=== PATIENT | female | born 1965 | race American Indian/Alaskan Native ===

== ENCOUNTER 2019-03-21 13:56 | Emergency (ER) | payer SELFPAY ==
--- NOTE | 2019-03-21 14:23 | Cat Scan Report ---
CT HEAD WITHOUT CONTRAST INDICATION / CLINICAL INFORMATION: neuro deficits <6hrs or sx present upon awakening. Code stroke TECHNIQUE: Axial imaging performed from the skull apex through the skull base without the use of cont rast. Sagittal and coronal reformatted images. All CT scans at this location are performed using CT dose reduction for ALARA by means of automated exposure control. COMPARISON: None available. FINDINGS: CEREBRAL PARENCHYMA: No significant abnormality. No acute territorial infarct. HEMORRHAGE: None. EXTRA-AXIAL SPACES: Normal in size and morphology for the patient's age. VENTRICULAR SYSTEM: Normal in size and morphology for the patient's age. MIDLINE SHIFT OR HERNIATION: None. CEREBELLUM / BRAINSTEM: No significant abnormality. CALVARIUM: No significant abnormality. ORBITS: Normal as visualized. PARANASAL SINUSES / MASTOID AIR CELLS: Normal as visualized. SOFT TISSUES of HEAD: No significant abnormality. ADDITIONAL FINDINGS: None. IMPRESSION: No acute intracranial abnormality. These findings were discussed with Dr. Monge in the emergency department at 1418 hours Eastern standar d time. Signer Name: Oliverio Bender Jr, MD Signed: 03/21/2019 2:18 PM Workstation Name: [id number]
--- NOTE | 2019-03-21 14:31 | Emergency Department Report ---
ED Neuro Deficit HPI - General Chief Complaint: Neuro Symptoms/Deficit Stated Complaint: POSS STROKE/NUMB Time Seen by Provider: 03/21/19 14:18 Source: patient, family Mode of arrival: Ambulatory Limitations: No Limitations - History of Present Illness Initial Comments: [facility] TeleStroke Metrics: LKW: 2300 Door Time: 1356 [facility] Contacted: 1400 [facility] at Bedside: 1409 NIHSS: 1415 Decision on Alteplase: Not to give as her last known well time was last night. Interventional Candidate: Not a candidate as her symptoms are not consistent with a large vessel proximal occlusion. Chief Complaint: Headaches and facial weakness HPI: Asked to see this patient in telemedicine consultation. Consultation was performed with assistance of ancillary / medical staff at bedside. Verbal consent to perform the examination with telemedicine was obtained. Patient agreed to proceed with the consultation. 53-year-old right-handed -[place] female who was brought to the emergency by her daughter for headaches and right facial twisting. Patient does not take any aspirin or medications in general. She states she might have a history of hypertension but again does not take any medications. Patient went to bed at her baseline at around 11 PM. She then woke up this morning around 10:30 am with a bitemporal headache and an abnormal pulling sensation behind both sides of her neck. She also felt like the right side of her face was swollen and twisted. She has never had these symptoms before. She denied any involvement of her arms or legs. Upon my evaluation, the patient actually looks like she has a left Zhang's palsy. She has a decrease in left eye blinking and a left facial asymmetry. She is able to move the right side of her face. She had no focal motor weakness or numbness in her limbs. PMH: Possible hypertension SOC: Positive tobacco abuse. Negative x2. Patient lives with her daughter. FMH: Mother with a stroke before. ROS: 13 point review of systems were reviewed with the patient, and are all negative with the exception of the aforementioned in the history of present illness. VS: Nothing documented yet. Exam: Patient is in no apparent distress. Patient appears as stated age. No obvious acute respiratory or cardiac distress. Patient is well groomed and well-nourished. 1a- LOC: Keenly responsive - 0 1b- LOC questions: Answers both questions correctly - 0 1c- LOC commands- Performs both tasks correctly- 0 2- Gaze: Normal; no gaze paresis or gaze deviation - 0 3- Visual Young: normal, no Visual field deficit - 0 4- Facial movements: left facial palsy - 3 5- Upper limb motor - no drift - 0 6- Lower limb motor - no drift - 0 7- Limb Coordination: absent ataxia - 0 8- Sensory: no sensory loss - 0 9- Language - No aphasia - 0 10- Speech - No dysarthria -0 11- Neglect / Extinction - none found - 0 NIHSS score: 3 Diagnostic Data: Blood glucose 108 CT of the head showed no acute intracranial process Medical Data Reviewed: 1.Data?reviewed include clinical labs, radiology,?and medical tests; 2.Tests?results discussed w/performing or interpreting physician; 3.Obtaining/reviewing old medical records; 4.Obtaining?case history from another source; 5.Independent?review of image, tracing, or specimen. Medical Decision Making: - Extensive number of diagnosis or management options are considered below. - Extensive amount of complex data reviewed. - High risk of complication and/or morbidity or mortality are associated with differential diagnostic considerations below. - There may be?uncertain?outcome and increased probability of prolonged functional impairment or high probability of severe prolonged functional impairment associated with some of these differential diagnosis. Differential Diagnosis for Stroke: 1.?Cardioembolic?stroke 2. Small vessel disease/lacune 3. Thromboembolic, [id number] mechanism 4.?Hypercoagulable?state-related infarct 5. Transient ischemic attack 6. Thrombotic mechanism, large artery disease Assessment: 1. Acute left-sided Zhang's palsy. Peripheral versus central etiologies. 2. Possible hypertension 3. Tobacco abuse Recommendations: Patient can be admitted to the hospital for further work-up of her symptoms. Check MRI of the brain with and without contrast to rule out any brainstem lesions that could be causing her left-sided Zhang's palsy. Check MRA of the head and neck to evaluate her intracranial and extracranial blood vessels. Can start the patient on a baby aspirin for now to cover the possibility of a central cause of her Zhang's palsy. Can also start the patient on a 7-day course of prednisone and a 7-day course of acyclovir to cover the possibility of a peripheral Zhang's. Patient and daughter were counseled that a peripheral Zhang's palsy can actually get worse within the next 48 to 72 hours. It may take up to 4 to 6 weeks for her Zhang's palsy to recover. It is important that the patient protects her left eye from a corneal abrasion due to left eye closure weakness. She is to use natural tear eyedrops every hour while awake and can use Lacri-Lube to the left eye while asleep. She can also use left eye patching while sleeping at night to protect her left eye while asleep. Continue supportive care. Plan of care was discussed with the patient and her daughter. Thank you for allowing [facility] to participate in the care of your patient. Please call me, Dr. Escobar, with any questions at [phone]. Case discussed with the ER staff and Dr. Monge. Critical Care notation: I was called to see this critical patient emergently. I personally evaluated this critical patient for acute stroke evaluation, and determining their eligibility for IV Alteplase and interventional therapies. I have spent approximately 12 minutes with the patient, including time at bedside, time discussing the case with other physicians, reviewing plan of care, and time independently reviewing the records and scans. - Related Data Allergies/Adverse Reactions: Allergies Allergy/AdvReac Type Severity Reaction Status Date / Time No Known Allergies Allergy Verified 03/21/19 13:59 ED Review of Systems ROS: Stated complaint: POSS STROKE/NUMB Other details as noted in HPI ED Neuro Physical Exam - General Limitations: No Limitations Suspected Stroke: No - Lab Data Lab Results 03/21/19 Range/Units 14:07 POC Glucose 108 H (70-105) Critical care attestation.: If time is entered above; I have spent that time in minutes in the direct care of this critically ill patient, excluding procedure time. ED Disposition Clinical Impression: Facial paralysis/[place] palsy Disposition: OP ADMIT IP TO THIS HOSP Is pt being admited?: Yes Does the pt Need Aspirin: Yes Condition: Stable
--- NOTE | 2019-03-21 14:47 | Emergency Department Report ---
ED Neuro Deficit HPI - General Chief Complaint: Neuro Symptoms/Deficit Stated Complaint: POSS STROKE/NUMB Time Seen by Provider: 03/21/19 14:18 Source: patient, family Mode of arrival: Ambulatory Limitations: No Limitations - History of Present Illness Initial Comments: 53-year-old female presents to the ED as a stroke alert. Patient states she awoke this morning at around 9 AM with left facial droop. Patient states on yesterday she began noticing she was having trouble closing her left eye. Patient denies any extremity weakness or numbness, denies any slurred speech. -: days(s) (1) Location: left face Presenting Symptoms: Present: Weak/Paralyzed One Side History of same: No Place: home Severity: mild Quality: weak Improves With: none Worsens With: none On Anticoagulants: No Associated Symptoms: headaches. denies: confusion, chest pain, nausea/vomiting Treatments Prior to Arrival: none - Related Data Home Medications: Previous Rx's Medication Instructions Recorded Last Taken Type Acyclovir [Zovirax Cap] 400 mg PO TID #21 cap 03/21/19 Unknown Rx Aspirin 325 mg PO QDAY #30 tablet 03/21/19 Unknown Rx Prednisone [predniSONE 10 mg 10 mg PO .TAPER #1 tab.ds.pk 03/21/19 Unknown Rx (6-Day Pack, 21 Tabs)] Simvastatin 40 mg PO QHS #30 tablet 03/21/19 Unknown Rx amLODIPine [Norvasc] 10 mg PO DAILY #30 tab 03/21/19 Unknown Rx hydroCHLOROthiazide [HCTZ] 25 mg PO QDAY #30 tablet 03/21/19 Unknown Rx Allergies/Adverse Reactions: Allergies Allergy/AdvReac Type Severity Reaction Status Date / Time No Known Allergies Allergy Verified 03/21/19 13:59 ED Review of Systems ROS: Stated complaint: POSS STROKE/NUMB Other details as noted in HPI Comment: All other systems reviewed and negative Constitutional: denies: chills, fever Respiratory: denies: shortness of breath Cardiovascular: denies: chest pain Gastrointestinal: denies: nausea, vomiting Neurological: headache, other (reports left facial droop) ED Past Medical Hx - Medications Home Medications: Home Medications Medication Instructions Recorded Confirmed Last Taken Type Acyclovir [Zovirax Cap] 400 mg PO TID #21 cap 03/21/19 Unknown Rx Aspirin 325 mg PO QDAY #30 tablet 03/21/19 Unknown Rx Prednisone [predniSONE 10 mg 10 mg PO .TAPER #1 tab.ds.pk 03/21/19 Unknown Rx (6-Day Pack, 21 Tabs)] Simvastatin 40 mg PO QHS #30 tablet 03/21/19 Unknown Rx amLODIPine [Norvasc] 10 mg PO DAILY #30 tab 03/21/19 Unknown Rx hydroCHLOROthiazide [HCTZ] 25 mg PO QDAY #30 tablet 03/21/19 Unknown Rx ED Neuro Physical Exam - General Limitations: No Limitations General appearance: alert, in no apparent distress Suspected Stroke: No - Head Head exam: Present: atraumatic, normocephalic - Eye Eye exam: Present: normal appearance, PERRL, EOMI Pupils: Present: normal accommodation - ENT ENT exam: Present: mucous membranes moist - Neck Neck exam: Present: normal inspection - Respiratory Respiratory exam: Present: normal lung sounds bilaterally. Absent: respiratory distress - Cardiovascular Cardiovascular Exam: Present: regular rate, normal rhythm - GI/Abdominal GI/Abdominal exam: Present: soft. Absent: distended, tenderness - Extremities Exam Extremities exam: Present: normal inspection - Neurological Exam Neurological exam: Present: alert, oriented X3 - NIHSS Assessment Interval: Baseline 1a. Level of Consciousness: alert/keenly responsive 1b. LOC Questions: answers both correctly 1c. LOC Commands: performs tasks correctly 2. Best Gaze: normal 3. Visual: no visual loss 4. Facial Palsy: unilateral complete paralysis 5b. Motor Arm Right: no drift 5a. Motor Arm Left: no drift 6a. Motor Leg Left: no drift 6b. Motor Leg Right: no drift 7. Limb Ataxia: absent 8. Sensory: normal 9. Best Language: no aphasia 10. Dysarthria: normal 11. Extinction/Inattention: no abnormality Total Score: 3 Stroke Severity: Minor Stroke - Psychiatric Psychiatric exam: Present: normal affect, normal mood - Skin Skin exam: Present: warm, dry, intact, normal color ED Course Vital Signs 03/21/19 03/21/19 03/21/19 14:22 14:31 14:45 Temperature Pulse Rate 101 H 84 80 Respiratory 15 20 12 Rate Blood Pressure 212/138 Blood Pressure [Left] O2 Sat by Pulse 99 99 100 Oximetry 03/21/19 03/21/19 03/21/19 14:48 14:49 15:00 Temperature 98.5 F Pulse Rate 81 80 Respiratory 13 13 20 Rate Blood Pressure 199/131 Blood Pressure 229/129 [Left] O2 Sat by Pulse 100 100 99 Oximetry 03/21/19 03/21/19 03/21/19 15:15 15:30 15:33 Temperature Pulse Rate 79 80 80 Respiratory 10 L 17 Rate Blood Pressure 200/124 178/124 200/124 Blood Pressure [Left] O2 Sat by Pulse 99 100 Oximetry 03/21/19 03/21/19 03/21/19 15:45 16:00 16:15 Temperature Pulse Rate 76 76 75 Respiratory 14 15 16 Rate Blood Pressure 189/118 164/110 181/106 Blood Pressure [Left] O2 Sat by Pulse 98 98 99 Oximetry 03/21/19 03/21/19 03/21/19 16:30 16:45 17:00 Temperature Pulse Rate 74 76 76 Respiratory 12 13 15 Rate Blood Pressure 183/117 183/117 180/108 Blood Pressure [Left] O2 Sat by Pulse 99 100 99 Oximetry 03/21/19 03/21/19 03/21/19 17:15 17:30 18:03 Temperature Pulse Rate 74 74 82 Respiratory 13 16 15 Rate Blood Pressure 189/113 197/114 Blood Pressure 162/93 [Left] O2 Sat by Pulse 99 98 100 Oximetry 03/21/19 03/21/19 03/21/19 18:09 18:45 19:01 Temperature Pulse Rate 76 82 82 Respiratory 18 Rate Blood Pressure 164/110 190/98 Blood Pressure 155/93 [Left] O2 Sat by Pulse 100 Oximetry 03/21/19 19:06 Temperature Pulse Rate 85 Respiratory 18 Rate Blood Pressure Blood Pressure 153/92 [Left] O2 Sat by Pulse 100 Oximetry - Lab Data Result diagrams: 03/21/19 14:40 03/21/19 14:40 Lab Results 03/21/19 03/21/19 03/21/19 Range/Units 14:07 14:40 14:40 WBC 8.0 (4.5-11.0) K/mm3 RBC 4.93 (3.65-5.03) M/mm3 Hgb 15.3 H (10.1-14.3) gm/dl Hct 45.8 H (30.3-42.9) % MCV 93 (79-97) fl MCH 31 (28-32) pg MCHC 33 (30-34) % RDW 13.9 (13.2-15.2) % Plt Count 306 (140-440) K/mm3 Lymph % (Auto) 46.5 H (13.4-35.0) % [place] % (Auto) 5.9 (0.0-7.3) % Eos % (Auto) 1.6 (0.0-4.3) % Baso % (Auto) 1.5 (0.0-1.8) % Lymph # 3.7 (1.2-5.4) K/mm3 [place] # 0.5 (0.0-0.8) K/mm3 Eos # 0.1 (0.0-0.4) K/mm3 Baso # 0.1 (0.0-0.1) K/mm3 Seg Neutrophils % 44.5 (40.0-70.0) % Seg Neutrophils # 3.6 (1.8-7.7) K/mm3 PT 12.1 L (12.2-14.9) Sec. INR 0.92 (0.87-1.13) APTT 29.7 (24.2-36.6) Sec. Thrombin Time 18.3 (15.1-19.6) Sec. Sodium (137-145) mmol/L Potassium (3.6-5.0) mmol/L Chloride (98-107) mmol/L Carbon Dioxide (22-30) mmol/L Anion Gap mmol/L BUN (7-17) mg/dL Creatinine (0.7-1.2) mg/dL Estimated GFR ml/min BUN/Creatinine Ratio % Glucose (65-100) mg/dL POC Glucose 108 H (70-105) Calcium (8.4-10.2) mg/dL Troponin T (0.00-0.029) ng/mL 03/21/19 Range/Units 14:40 WBC (4.5-11.0) K/mm3 RBC (3.65-5.03) M/mm3 Hgb (10.1-14.3) gm/dl Hct (30.3-42.9) % MCV (79-97) fl MCH (28-32) pg MCHC (30-34) % RDW (13.2-15.2) % Plt Count (140-440) K/mm3 Lymph % (Auto) (13.4-35.0) % [place] % (Auto) (0.0-7.3) % Eos % (Auto) (0.0-4.3) % Baso % (Auto) (0.0-1.8) % Lymph # (1.2-5.4) K/mm3 [place] # (0.0-0.8) K/mm3 Eos # (0.0-0.4) K/mm3 Baso # (0.0-0.1) K/mm3 Seg Neutrophils % (40.0-70.0) % Seg Neutrophils # (1.8-7.7) K/mm3 PT (12.2-14.9) Sec. INR (0.87-1.13) APTT (24.2-36.6) Sec. Thrombin Time (15.1-19.6) Sec. Sodium 141 (137-145) mmol/L Potassium 4.2 (3.6-5.0) mmol/L Chloride 98.9 (98-107) mmol/L Carbon Dioxide 30 (22-30) mmol/L Anion Gap 16 mmol/L BUN 11 (7-17) mg/dL Creatinine 0.7 (0.7-1.2) mg/dL Estimated GFR > 60 ml/min BUN/Creatinine Ratio 16 % Glucose 110 H (65-100) mg/dL POC Glucose (70-105) Calcium 9.7 (8.4-10.2) mg/dL Troponin T < 0.010 (0.00-0.029) ng/mL - EKG Data -: EKG Interpreted by Wy EKG shows normal: sinus rhythm, axis, intervals, QRS complexes, ST-T waves Rate: normal Interpretation: no acute changes, LVH - Radiology Data Radiology results: report reviewed, image reviewed - Medical Decision Making - CT Head negative - pt has Zhang's palsy - seen by neurologist who recommends admission for MRI - BP elevated, pt not on BP meds, labetalol given - will admit to hospitalist - Differential Diagnosis Zhang's palsy, CVA Critical care attestation.: If time is entered above; I have spent that time in minutes in the direct care of this critically ill patient, excluding procedure time. ED Disposition Clinical Impression: Facial paralysis/[place] palsy, Uncontrolled hypertension Disposition: OP ADMIT IP TO THIS HOSP Is pt being admited?: Yes Condition: Stable Instructions: Hypertension (ED) Prescriptions: Simvastatin 40 mg PO QHS #30 tablet Aspirin 325 mg PO QDAY #30 tablet hydroCHLOROthiazide [HCTZ] 25 mg PO QDAY #30 tablet amLODIPine [Norvasc] 10 mg PO DAILY #30 tab Prednisone [predniSONE 10 mg (6-Day Pack, 21 Tabs)] 10 mg PO .TAPER #1 tab.ds.pk Acyclovir [Zovirax Cap] 400 mg PO TID #21 cap Referrals: CALOS MOSLEY MD [Primary Care Provider] - 7 Days Time of Disposition: 15:21
[2019-03-21 14:48] LABS: Basophils # (Auto) 0.1 K/mm3 (0.0-0.1); Basophils % (Auto) 1.5 % (0.0-1.8); Eosinophils # (Auto) 0.1 K/mm3 (0.0-0.4); Eosinophils % (Auto) 1.6 % (0.0-4.3); Hematocrit 45.8 % (30.3-42.9); Hemoglobin 15.3 gm/dl (10.1-14.3); Lymphocytes # (Auto) 3.7 K/mm3 (1.2-5.4); Lymphocytes % (Auto) 46.5 % (13.4-35.0); Mean Corpuscular HGB Conc 33 % (30-34); Mean Corpuscular Volume 93 fl (79-97); Monocytes # (Auto) 0.5 K/mm3 (0.0-0.8); Monocytes % (Auto) 5.9 % (0.0-7.3); Platelet Count 306 K/mm3 (140-440); Red Blood Count 4.93 M/mm3 (3.65-5.03); Red Cell Distribution Width 13.9 % (13.2-15.2)
[2019-03-21 15:00] LABS: INR 0.92 (0.87-1.13); Partial Thromboplastin Time 29.7 Sec. (24.2-36.6)
[2019-03-21 15:01] LABS: Thrombin Time 18.3 Sec. (15.1-19.6)
[2019-03-21 15:11] LABS: BUN/Creatinine Ratio 16; Blood Urea Nitrogen 11 mg/dL (7-17); Calcium 9.7 mg/dL (8.4-10.2); Hemolysis Index 12
[2019-03-21] MEDS ORDERED: NORMODYNE IV ONE (15:29)
[2019-03-21] MEDS ORDERED: SOLU-Medrol IV ONE (15:29)
[2019-03-21] MEDS ORDERED: BABY ASPIRIN PO ONE (15:31)
[2019-03-21] MEDS ORDERED: APRESOLINE IV ONE ×2 (18:50→19:00)
--- NOTE | 2019-03-21 19:15 | Event Note ---
Date: 03/21/19 53 YO Female presents to ED for evaluation. Pt seen and evaluated in ED and found to have symptoms consistent with [place] Palsy and well as uncontrolled HTN secondary to medication noncompliance. Pt treated with antihypertensive therapy with improvement in systolic blood pressure. Teleneurology consulted. Pt does not have symptoms consistent with CVA. Pt medically optimized. Pt discharged home and instructed to f/u pcp 3-5 days, as well as neurology 3-5 days. - General Limitations: No Limitations General appearance: alert, in no apparent distress Suspected Stroke: No - Head Head exam: Present: atraumatic, normocephalic - Eye Eye exam: Present: normal appearance, PERRL, EOMI Pupils: Present: normal accommodation Pt has Left facial droop, and inability to Close her left eye. - ENT ENT exam: Present: mucous membranes moist - Neck Neck exam: Present: normal inspection - Respiratory Respiratory exam: Present: normal lung sounds bilaterally. Absent: respiratory distress - Cardiovascular Cardiovascular Exam: Present: regular rate, normal rhythm - GI/Abdominal GI/Abdominal exam: Present: soft. Absent: distended, tenderness - Extremities Exam Extremities exam: Present: normal inspection, No deficit. Strength: 5/5 BUE/BLE - Neurological Exam Neurological exam: Present: alert, oriented X3
[2019-03-21 20:04] VITALS: BP 145/84
[2019-03-21] MEDS ORDERED: CATAPRES PO ONE (20:17)
== END 2019-03-21 20:09 | disposition admitted as inpatient to this hospital (09) ==
LOC: ED 13:56
DX: G51.0 Bell's palsy (principal); I10 Essential (primary) hypertension
CPT/HCPCS: 36415; 70450; 80048; 82962; 84484; 85025; 85610; 85670; 85730; 93005; 93010; 96374; 96375; 99285; J0360; J2930